=== PATIENT | male | born 1985 | race Caucasian/White ===

== ENCOUNTER 2016-11-10 19:17 | Emergency (ER) | payer OTHER ==
[2016-11-10 19:27] VITALS: BP 140/92
--- NOTE | 2016-11-10 19:32 | EDM.PDOCBH ---
ED HPI GENERAL MEDICAL PROBLEM - General Chief Complaint: Behavioral/Psych Stated Complaint: HARM TO HIMSELF BROUGHT IN BY [facility] [employer] Time Seen by Provider: 11/10/16 19:31 - History of Present Illness INITIAL COMMENTS - FREE TEXT/NARRATIVE: 31-year-old male presents emergency room brought in by [facility] after making some suicidal comments. The patient was talking to his ex-girlfriend who walked out on him a while back. Apparently he was upset at her and said he was going to hurt himself she then contacted the [employer] who contacted the patient. chief power dispatcher advised the patrolman to bring him in for evaluation. Patient denies any drugs he did have one beer midday today. At this time the patient and has no suicidal thoughts or ideation. He appears sober is alert and oriented and has a proper thought process. He does not have a suicidal plan. 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 - Related Data Allergies Allergy/AdvReac Type Severity Reaction Status Date / Time No Known Allergies Allergy Verified 11/10/16 19:26 Home Meds: Home Meds Adalimumab [Humira] 40 mg SQ ASDIRECTED 10/07/15 [History] Past Medical History - Past Health History Medical/Surgical History: Denies Medical/Surgical History Gastrointestinal History: Reports: Other (See Below) Other Gastrointestinal History: HX OF CHRONES DX - Past Surgical History GI Surgical History: Reports: Appendectomy Social & Family History - Family History Family Medical History: Noncontributory - Tobacco Use Smoking Status *Q: Never Smoker Second Hand Smoke Exposure: Yes - Caffeine Use Caffeine Use: Reports: None - Alcohol Use Days Per Week of Alcohol Use: 2 Number of Drinks Per Day: 5 Total Drinks Per Week: 10 - Recreational Drug Use Recreational Drug Use: No ED ROS GENERAL - Review of Systems Review Of Systems: See Below Constitutional: Reports: No Symptoms HEENT: Reports: No Symptoms Respiratory: Reports: No Symptoms Cardiovascular: Reports: No Symptoms Endocrine: Reports: No Symptoms GI/Abdominal: Reports: No Symptoms : Reports: No Symptoms Musculoskeletal: Reports: No Symptoms Skin: Reports: No Symptoms Neurological: Reports: No Symptoms Psychiatric: Reports: Other (He did suggest he was suicidal when he was angry at his ex, but then says he really had no intentions of wanting to hurt himself) . Denies: Agitation, Anxiety, Confusion, Cravings, Depression, Hallucinations, Homicidal Ideation, Mood Lability, Suicidal Ideation Immunologic: Reports: No Symptoms ED EXAM, BEHAVIORAL HEALTH - Physical Exam Exam: See Below Exam Limited By: No Limitations General Appearance: Alert, No Apparent Distress, Other (Patient is alert and oriented very cooperative he does not appear to be under the influence of any mind altering substances.) Eye Exam: Bilateral Eye: Normal Inspection, PERRL Ears: Normal External Exam, Normal Canal, Hearing Grossly Normal, Normal TMs Nose: Normal Inspection, Normal Mucosa, No Blood Throat/Mouth: Normal Inspection, Normal Lips, Normal Teeth, Normal Gums, Normal Oropharynx, Normal Voice, No Airway Compromise Head: Atraumatic, Normocephalic Neck: Normal Inspection, Supple, Non-Tender, Full Range of Motion. No: Lymphadenopathy (L), Lymphadenopathy (R) Respiratory/Chest: No Respiratory Distress, Lungs Clear, Normal Breath Sounds Cardiovascular: Regular Rate, Rhythm, No Edema, No Murmur GI/Abdominal: Normal Bowel Sounds, Soft, Non-Tender, No Organomegaly, No Distention, No Abnormal Bruit, No Mass Psychiatric: No: Depressed Mood, Flat Affect, Incoherent, Restless, Tearful, Agitated, Uncooperative, Withdrawn, Flight of Ideas, Homicidal Thoughts, Moravian Delusions, Suicidal Plan, Suicidal Thoughts, Tangential Thoughts, Auditory Hallucinations, Visual Hallucinations, Grandiose Thoughts, Pressured Speech, Paranoid Thoughts COURSE, BEHAVIORAL HEALTH COMP - Course Vital Signs: Last Vital Signs Temp 36.9 C 11/10/16 19:23 Pulse 79 11/10/16 19:23 Resp 18 11/10/16 19:23 BP 140/92 H 11/10/16 19:23 Pulse Ox 98 11/10/16 19:23 Orders, Labs, Meds: Laboratory Tests 11/10/16 11/10/16 11/10/16 Range/Units 19:57 19:57 20:30 WBC 11.32 H (4.23-9.07) K/mm3 RBC 5.27 (4.63-6.08) M/mm3 Hgb 15.9 (13.7-17.5) gm/L Hct 45.7 (40.1-51.0) % MCV 86.7 (79.0-92.2) fl MCH 30.2 (25.7-32.2) pg MCHC 34.8 (32.2-35.5) g/dl RDW Std Deviation 38.5 (35.1-43.9) fL Plt Count 281 (163-337) K/mm3 MPV 9.4 (9.4-12.3) fl Neutrophils % (Manual) 71 H (40-60) % Band Neutrophils % 0 (0-10) % Lymphocytes % (Manual) 28 (20-40) % Atypical Lymphs % 0 % Monocytes % (Manual) 1 L (2-10) % Eosinophils % (Manual) 0 L (0.8-7.0) % Basophils % (Manual) 0 L (0.2-1.2) Platelet Estimate Adequate RBC Morph Comment Normal Sodium 141 (136-145) mEq/L Potassium 4.4 (3.5-5.1) mEq/L Chloride 105 (98-107) mEq/L Carbon Dioxide 26 (21-32) mEq/L Anion Gap 14.4 (5-15) BUN 14 (7-18) mg/dL Creatinine 1.2 (0.7-1.3) mg/dL Est Cr Clr Drug Dosing 87.88 mL/min Estimated GFR (MDRD) > 60 (>60) mL/min BUN/Creatinine Ratio 11.7 L (14-18) Glucose 96 (74-106) mg/dL Calcium 10.0 (8.5-10.1) mg/dL Total Bilirubin 0.9 (0.2-1.0) mg/dL AST 69 H (15-37) U/L ALT 75 H (16-63) U/L Alkaline Phosphatase 92 (46-116) U/L Total Protein 8.8 H (6.4-8.2) g/dl Albumin 4.8 (3.4-5.0) g/dl Globulin 4.0 gm/dL Albumin/Globulin Ratio 1.2 (1-2) TSH 3rd Generation 1.373 (0.358-3.74) uIU/mL Urine Opiates Screen Negative (NEGATIVE) Ur Buprenorphine Scrn Negative (NEGATIVE) Ur Oxycodone Screen Negative (NEGATIVE) Urine Methadone Screen Negative (NEGATIVE) Ur Propoxyphene Screen Negative (NEGATIVE) Ur Barbiturates Screen Negative (NEGATIVE) Ur Tricyclics Screen Negative (NEGATIVE) Ur Phencyclidine Scrn Negative (NEGATIVE) Ur Amphetamine Screen Negative (NEGATIVE) U Methamphetamines Scrn Negative (NEGATIVE) U Benzodiazepines Scrn Negative (NEGATIVE) U Cocaine Metab Screen Negative (NEGATIVE) U Marijuana (THC) Screen Negative (NEGATIVE) Ethyl Alcohol 0.00 (0.00) gm% Re-Assessment/Re-Exam: Case discussed with Dr. Downs who does not feel that the patient is a harm to himself either. We will check labs and be sure he is not on any migraine altering substances indicated influence his thought process. At the time of discharge patient denies any suicidal thoughts or wishes or wishes to harm himself in any way urine drug screen is negative blood alcohol negative Departure - Departure Time of Disposition: 21:00 Disposition: Home, Self-Care 01 Clinical Impression: Suicide gesture - Discharge Information Forms: ED Department Discharge Additional Instructions: Return to the emergency room with any questions problems. Follow-up with your regular provider at the [facility] early this next week.
== END 2016-11-10 21:04 | disposition home or self-care (01) ==
LOC: JD.ED 19:17
DX: T14.91 Suicide attempt (principal); Z90.49 Acquired absence of other specified parts of digestive tract; X58.XXXA Exposure to other specified factors, initial encounter
CPT/HCPCS: 36415; 80053; 80306; 84443; 85025; 99285; G0480; 99283

== ENCOUNTER 2017-02-07 21:08 | Emergency (ER) | payer OTHER, BC ==
[2017-02-07 21:18] VITALS: BP 155/97
[2017-02-07] MEDS ORDERED: Diphtheria,Pertussis(Acell),Tetanus Vaccine 0.5 ML SDV IM ONE (21:29)
--- NOTE | 2017-02-07 21:30 | EDM.PDOC ---
ED HPI GENERAL MEDICAL PROBLEM - General Chief Complaint: Upper Extremity Injury/Pain Stated Complaint: VY BARBWIRE MIDDLE FINGER LEFT HAND Time Seen by Provider: 02/07/17 21:20 Source of Information: Reports: Patient History Limitations: Reports: No Limitations - History of Present Illness INITIAL COMMENTS - FREE TEXT/NARRATIVE: This is a 31-year-old male. This evening he was working with some vy michael wire and he got a puncture wound into his left ring finger distal pad. He pulled it out and there is no bleeding no evidence of infection at this juncture. He is here specifically because he wants a tetanus since his last tetanus was 2006. He denies any other acute symptoms. Left 3-Middle finger Pain Score (Numeric/FACES): 2 - Related Data Allergies Allergy/AdvReac Type Severity Reaction Status Date / Time No Known Allergies Allergy Verified 02/07/17 21:16 Home Meds: Home Meds Adalimumab [Humira] 40 mg SQ ASDIRECTED 10/07/15 [History] Past Medical History - Past Health History Medical/Surgical History: Denies Medical/Surgical History Gastrointestinal History: Reports: Other (See Below) Other Gastrointestinal History: HX OF CHRONES DX - Past Surgical History GI Surgical History: Reports: Appendectomy Social & Family History - Family History Family Medical History: Noncontributory - Tobacco Use Smoking Status *Q: Never Smoker Second Hand Smoke Exposure: Yes - Caffeine Use Caffeine Use: Reports: Coffee, Soda - Alcohol Use Days Per Week of Alcohol Use: 2 Number of Drinks Per Day: 5 Total Drinks Per Week: 10 - Recreational Drug Use Recreational Drug Use: No Review of Systems - Review of Systems Review Of Systems: See Below Constitutional: Reports: No Symptoms Eyes: Reports: No Symptoms Ears: Reports: No Symptoms Nose: Reports: No Symptoms Mouth/Throat: Reports: No Symptoms Respiratory: Reports: No Symptoms Cardiovascular: Reports: No Symptoms GI/Abdominal: Reports: No Symptoms Genitourinary: Reports: No Symptoms Musculoskeletal: Reports: Other (As per history of present illness) Skin: Reports: Other (As per history of present illness) Neurological: Reports: No Symptoms Psychiatric: Reports: No Symptoms ED EXAM, GENERAL - Physical Exam Exam: See Below Exam Limited By: No Limitations General Appearance: Alert, WD/WN, No Apparent Distress Eye Exam: Bilateral Eye: Normal Inspection Ears: Normal External Exam Nose: Normal Inspection Throat/Mouth: Normal Inspection, Normal Lips, Normal Voice Head: Normocephalic Neck: Supple Respiratory/Chest: No Respiratory Distress Back Exam: Full Range of Motion Extremities: Normal Range of Motion, Other (His left ring finger pad. There is a small puncture wound there that is not bleeding there is no swelling there is no evidence of inflammation or redness and there is only minimal tenderness on palpation he has full function of that ring finger is forced flexion and extension) Neurological: Alert, Oriented Psychiatric: Normal Affect, Normal Mood Skin Exam: Warm, Dry Course - Vital Signs Last Recorded V/S: Last Vital Signs Temp 98.7 F 02/07/17 21:16 Pulse 62 02/07/17 21:16 Resp 12 02/07/17 21:16 BP 155/97 H 02/07/17 21:16 Pulse Ox 97 02/07/17 21:16 - Orders/Labs/Meds Orders: Active Orders 24 hr Category Date Time Status Vaccines to be Administered [RC] PER UNIT ROUTINE Care 02/07/17 21:29 Active Meds: Medications Discontinued Medications Generic Name Dose Route Start Last Admin Trade Name Kasie PRN Reason Stop Dose Admin Diphtheria/Tetanus/Acell Pertussis 0.5 ml 02/07/17 21:29 02/07/17 21:39 Adacel IM 02/07/17 21:30 0.5 ml .ONCE ONE Administration - Re-Assessments/Exams Free Text/Narrative Re-Assessment/Exam: 02/07/17 22:00 Patient will receive a TD and then he desires to go home. We did clean the wound and place a Band-Aid and some ointment on the puncture wound. Departure - Departure Time of Disposition: 21:29 Disposition: Home, Self-Care 01 Condition: Good Clinical Impression: Puncture wound of left ring finger - Discharge Information Instructions: Puncture Wound, Yuwk-am-Blar Referrals: PCP,None [Primary Care Provider] - Forms: ED Department Discharge Additional Instructions: Watch for infection such as increased drainage especially yellow swelling or redness or marked increased pain, if there is any of these sign suggesting infection follow-up with your family doctor or return to the ER immediately - My Orders Last 24 Hours: My Active Orders 02/07/17 21:29 Vaccines to be Administered [RC] PER UNIT ROUTINE - Assessment/Plan Last 24 Hours: My Active Orders 10/27/17 21:29 Vaccines to be Administered [RC] PER UNIT ROUTINE
== END 2017-02-07 21:42 | disposition home or self-care (01) ==
LOC: JD.ED 21:08
DX: S61.235A Puncture wound without foreign body of left ring finger without damage to nail, initial encounter (principal); W45.8XXA Other foreign body or object entering through skin, initial encounter
CPT/HCPCS: 90471; 90715; 99282; 99283-25

== ENCOUNTER 2019-04-12 09:11 | Emergency (ER) | payer BC, OTHER ==
[2019-04-12 09:30] VITALS: BP 133/89; PULSE 84
--- NOTE | 2019-04-12 10:10 | EDM.PDOC ---
ED HPI GENERAL MEDICAL PROBLEM - General Chief Complaint: Upper Extremity Injury/Pain Stated Complaint: L SHOULDER PAIN Time Seen by Provider: 04/12/19 09:26 Source of Information: Reports: Patient History Limitations: Reports: No Limitations - History of Present Illness INITIAL COMMENTS - FREE TEXT/NARRATIVE: The patient presents with left shoulder pain. This has been going on for over a week. He did not injure his shoulder in any way. He has pain to the posterior left shoulder and it is worse with movement. He is right handed. He has not history of problems with that shoulder. He has pain that will go up to his neck at times. He has no chest pain or abdominal pain. He is right handed. Onset: Gradual Duration: Week(s): (1) Location: Reports: Upper Extremity, Left (shoulder) Quality: Reports: Sharp Severity: Moderate Improves with: Reports: Immobilization Worsens with: Reports: Movement Context: Denies: Trauma Associated Symptoms: Reports: No Other Symptoms Left Shoulder Pain Score (Numeric/FACES): 10 - Related Data Allergies Allergy/AdvReac Type Severity Reaction Status Date / Time No Known Allergies Allergy Verified 04/12/19 09:21 Home Meds: Home Meds Adalimumab [Humira] 40 mg SQ ASDIRECTED 10/07/15 [History] Hydrocodone/Acetaminophen [Hydrocodon-Acetaminophen 5-325] 1 - 2 each PO Q6HR PRN #20 tablet 04/12/19 [Rx] Past Medical History - Past Health History Medical/Surgical History: Denies Medical/Surgical History Gastrointestinal History: Reports: Other (See Below) Other Gastrointestinal History: HX OF CHRONES DX - Past Surgical History GI Surgical History: Reports: Appendectomy Social & Family History - Family History Family Medical History: Noncontributory - Tobacco Use Smoking Status *Q: Never Smoker - Caffeine Use Caffeine Use: Reports: Coffee, Soda - Recreational Drug Use Recreational Drug Type: Reports: Marijuana/Hashish Review of Systems - Review of Systems Review Of Systems: See Below Constitutional: Reports: No Symptoms Eyes: Reports: No Symptoms Ears: Reports: No Symptoms Nose: Reports: No Symptoms Mouth/Throat: Reports: No Symptoms Respiratory: Reports: No Symptoms Cardiovascular: Reports: No Symptoms GI/Abdominal: Reports: No Symptoms Genitourinary: Reports: No Symptoms Musculoskeletal: Reports: Shoulder Pain (left) ED EXAM, GENERAL - Physical Exam Exam: See Below Exam Limited By: No Limitations General Appearance: Alert, No Apparent Distress Ears: Normal External Exam Nose: Normal Inspection Head: Atraumatic, Normocephalic Neck: Normal Inspection Respiratory/Chest: No Respiratory Distress, Lungs Clear, Normal Breath Sounds Cardiovascular: Regular Rate, Rhythm, No Edema, No Murmur GI/Abdominal: Soft, Non-Tender, No Organomegaly, No Mass Extremities: Other (Pain upon palpation to the left posterior shoulder. Limited range of motion due to pain. Good sensation and pulses distally.) Course - Vital Signs Last Recorded V/S: Last Vital Signs Temp 97.1 F 04/12/19 09:22 Pulse 84 04/12/19 09:22 Resp 16 04/12/19 09:22 BP 133/89 04/12/19 09:22 Pulse Ox 98 04/12/19 09:22 - Orders/Labs/Meds Orders: Active Orders 24 hr Category Date Time Status Shoulder Comp Lt [CR] Stat Exams 04/12/19 09:33 Taken - Re-Assessments/Exams Free Text/Narrative Re-Assessment/Exam: 04/12/19 10:08 I ordered an x-ray and it looks good. I will discharge him home with something for pain and referral to OT and Dr Lozada. Departure - Departure Time of Disposition: 10:10 Disposition: Home, Self-Care 01 Condition: Good Clinical Impression: Left shoulder pain Qualifiers: Chronicity: acute Qualified Code(s): M25.512 - Pain in left shoulder - Discharge Information *PRESCRIPTION DRUG MONITORING PROGRAM REVIEWED*: No *COPY OF PRESCRIPTION DRUG MONITORING REPORT IN PATIENT JOHANN: No Prescriptions: Hydrocodone/Acetaminophen [Hydrocodon-Acetaminophen 5-325] 1 - 2 each PO Q6HR PRN #20 tablet PRN Reason: Pain Referrals: Trish Castro MD [Primary Care Provider] - Chi Lozada MD [Physician] - 1 Week Additional Instructions: Ice your shoulder for 15 minutes 3 times per day for 2 days. Take motrin or tylenol for pain. If that does not help, try the hydrocodone. Follow up with occupational therapy and Dr Lozada. Please return if you are worse. Sepsis Event Note - Evaluation Sepsis Screening Result: No Definite Risk - Focused Exam Vital Signs: Vital Signs Temp Pulse Resp BP Pulse Ox 04/12/19 09:22 97.1 F 84 16 133/89 98 Date Exam was Performed: 04/12/19 Time Exam was Performed: 10:04 - My Orders Last 24 Hours: My Active Orders 04/12/19 09:33 Shoulder Comp Lt [CR] Stat - Assessment/Plan Last 24 Hours: My Active Orders 04/12/19 09:33 Shoulder Comp Lt [CR] Stat
--- NOTE | 2019-04-12 10:41 | CR ---
Left shoulder: Three views of the left shoulder were obtained. Comparison: No prior shoulder exam. Glenohumeral joint and acromioclavicular joint appear within normal limits. No fracture, dislocation or other bony abnormality is appreciated. Impression: 1. No abnormality is seen on left shoulder study. Diagnostic code #1 This report was dictated in [place] Standard Time
== END 2019-04-12 10:30 | disposition home or self-care (01) ==
LOC: JD.ED 09:11
DX: M25.512 Pain in left shoulder (principal)
CPT/HCPCS: 73030-26-LT; 73030-LT; 99283; 99283-25